=== PATIENT | male | born 1970 | race Caucasian/White ===

== ENCOUNTER → 2023-07-25 | Outpatient (CLI) | payer OTHER | END | disposition home or self-care (01) | LOC: RAH 07:56 | PROVIDERS: ATTEND Surgery | DX: R22.32 Localized swelling, mass and lump, left upper limb (principal) | CPT/HCPCS: 76882 ==

== ENCOUNTER 2025-02-03 15:17 | Emergency (ER) | payer OTHER ==
[~2025-02-03] VITALS: Ht 185.4 cm; Wt 97.5 kg
--- NOTE | 2025-02-03 16:27 | HMCIMG ---
Exam Type: CT LUMBAR SPINE W/O CONTRAST Clinical Information: BLE numbness Comparison: None Technique: Spiral axial images were performed from T12 to the sacral level. Both sagittal and coronal reconstructions were performed. CT Dose Index (CTDI): 59.14 mGy Dose Length Product (DLP): 1953.1 total Findings: There is normal alignment of the vertebral bodies. There are no fractures. No facet hypertrophy. The prevertebral soft tissues are normal. IMPRESSION: NORMAL LUMBAR SPINE CT.
[2025-02-03 16:40] LABS: BASOPHILS # (AUTO) 0.02 K/uL (0.00-0.20); BASOPHILS % (AUTO) 0.3 % (0.0-5.0); EOSINOPHILS % (AUTO) 5.1 % (0.0-8.0); HEMATOCRIT 44.9 % (42-54); IMMATURE GRANULOCYTE ABSOLUTE 0.03 K/uL (0-1); LYMPHOCYTES # (AUTO) 1.2 K/uL (1.0-4.8); LYMPHOCYTES % (AUTO) 20.3 % (21.0-51.0); MEAN CORPUSCULAR HEMOGLOBIN 28.9 pg (27.0-33.0); MEAN CORPUSCULAR HGB CONC 33.6 g/dL (32.0-36.0); MONOCYTES # (AUTO) 0.6 K/uL (0.1-1.0); MONOCYTES % (AUTO) 9.5 % (3.0-13.0); NEUTROPHILS # (AUTO) 3.8 K/uL (1.8-7.7); NEUTROPHILS % (AUTO) 64.3 % (40.0-77.0); PLATELET COUNT (AUTO) 238 K/uL (130-400); RED BLOOD CELL COUNT(AUTO) 5.22 MIL/uL (4.50-6.20); RED CELL DISTRIBUTION WIDTH 13.2 % (11.0-15.5); WHITE BLOOD COUNT (AUTO) 5.9 K/uL (4.8-10.8)
[2025-02-03 16:48] LABS: CREATININE 1.5 mg/dL (0.5-1.3); POTASSIUM 3.9 mmol/L (3.5-5.1)
[2025-02-03] MEDS: 0.9%NACL 1000ML 1,000 ML IV ONE (18:00)
[2025-02-03 20:32] LABS: CREATININE 1.4 mg/dL (0.5-1.3); POTASSIUM 4.6 mmol/L (3.5-5.1)
--- NOTE | 2025-02-03 20:52 | ERN ---
General Chief Complaint: Numbness Stated Complaint: BLE NUMBNESS Time Seen by MD: 15:29 Time Seen by Midlevel: 15:29 Source: patient History of Present Illness Allergies: Coded Allergies: No Known Allergies (Unverified Allergy, Unknown, 02/03/25) Past Medical History Past Medical History: Cancer, Heart Disease, Hypertension Medical History Other: BACK PAIN Past Surgical History: Other Surgical History Other: LT NEPRECTOMY, SPLEEN, LT TESTICLE, STIMULATOR Results Laboratory and Microbiology Lab and Micro Result Laboratory Tests Test 02/03/25 16:26 02/03/25 20:20 White Blood Count 5.9 K/uL (4.8-10.8) Red Blood Count 5.22 MIL/uL (4.50-6.20) Hemoglobin 15.1 g/dL (14.0-18.0) Hematocrit 44.9 % (42-54) Mean Corpuscular Volume 86.0 fL (79-99) Mean Corpuscular Hemoglobin 28.9 pg (27.0-33.0) Mean Corpuscular Hemoglobin Concent 33.6 g/dL (32.0-36.0) Red Cell Distribution Width 13.2 % (11.0-15.5) Platelet Count 238 K/uL (130-400) Mean Platelet Volume 8.5 fL (7.5-10.5) Immature Granulocyte % (Auto) 0.5 % (0-1) Neutrophils (%) (Auto) 64.3 % (40.0-77.0) Lymphocytes (%) (Auto) 20.3 % (21.0-51.0) L Monocytes (%) (Auto) 9.5 % (3.0-13.0) Eosinophils (%) (Auto) 5.1 % (0.0-8.0) Basophils (%) (Auto) 0.3 % (0.0-5.0) Neutrophils # (Auto) 3.8 K/uL (1.8-7.7) Lymphocytes # (Auto) 1.2 K/uL (1.0-4.8) Monocytes # (Auto) 0.6 K/uL (0.1-1.0) Eosinophils # (Auto) 0.30 K/uL (0.00-0.70) Basophils # (Auto) 0.02 K/uL (0.00-0.20) Absolute Immature Granulocyte (auto 0.03 K/uL (0-1) Nucleated Red Blood Cells 0.0 % (0.0-0.19) Sodium Level 137 mmol/L (136-145) 137 mmol/L (136-145) Potassium Level 3.9 mmol/L (3.5-5.1) 4.6 mmol/L (3.5-5.1) Chloride Level 100 mmol/L (101-111) L 99 mmol/L (101-111) L Carbon Dioxide Level 31 mmol/L (21-32) 34 mmol/L (21-32) H Blood Urea Nitrogen 21 mg/dL (7-18) H 19 mg/dL (7-18) H Creatinine 1.5 mg/dL (0.5-1.3) H 1.4 mg/dL (0.5-1.3) H Glomerular Filtration Rate Calc 55 mL/min (>90) 59 mL/min (>90) Random Glucose 104 mg/dL (70-105) 100 mg/dL (70-105) Total Calcium 8.5 mg/dL (8.5-10.1) 8.8 mg/dL (8.5-10.1) ED Course Orders Procedure Category Date Status Time Cbc With Differential LAB 02/03/25 Complete 15:29 Basic Metabolic Panel LAB 02/03/25 Complete 15:29 Ct Lumbar Spine W/O CT 02/03/25 Resulted Contrast 15:29 0.9%Nacl 1000ml (Ns PHA 02/03/25 Complete 1000ml) 18:00 Basic Metabolic Panel LAB 02/03/25 Complete 20:00 Current Medications Medications (Trade) Dose Ordered Sig/Loi Route PRN Reason Start Time Stop Time Status Last Admin Dose Admin Sodium Chloride 1,000 ml @ 0 mls/hr ONCE ONCE IV 02/03/25 18:00 02/03/25 18:01 DC 02/03/25 18:00 Vital Signs Date Time Temp Pulse Resp B/P (MAP) Pulse Ox O2 Delivery O2 Flow Rate FiO2 02/03/25 19:40 97.7 76 18 143/84 99 Room Air* 0 21 02/03/25 15:19 98.2 96 18 127/90 95 Room Air 0 DX & DISP Disposition: Discharge Departure Impression: Primary Impression: Lower extremity neuropathy Condition: Stable Additional Instructions: Discharge home. Rest. Follow up with primary care in 24 hours. Return to the ER for any acute changes or worsening symptoms. If any medications were prescribed take as directed. Okay to continue home medications unless otherwise discussed during your visit in the emergency room today. Patient was also advised to follow-up with primary care physician in 1 to 2 days for continued monitoring. Referrals: SELF,REFERRAL (PCP) I performed the substantive portion of the visit. I have reviewed and personally made and approve the management plan that is documented in the notes by myself or the [facility]. I acknowledge full responsibility for the patient's management plan. SETH BECKETT Feb 03, 2025 20:52
[2025-02-03 21:11] VITALS: BP 165/86; PULSE 81; RESP 17; TEMP 97.6; O2SAT 96
== END 2025-02-03 21:18 | disposition home or self-care (01) ==
LOC: EDH 15:17
DX: G62.9 Polyneuropathy, unspecified (principal); I10 Essential (primary) hypertension; Z98.890 Other specified postprocedural states
CPT/HCPCS: 99284; 96360; 72131; 80048 ×2; 85025; 36415; J7030

== ENCOUNTER 2025-08-06 16:26 | Emergency (ER) | payer BC, OTHER ==
[~2025-08-06] VITALS: Ht 185.4 cm; Wt 95.7 kg
--- NOTE | 2025-08-06 16:34 | ERN ---
ED Note History of Present Illness Stated Complaint: HEAD INJURY Chief Complaint: Head Injury Time Seen by MD: 16:30 Dictation: PATIENT IS A 55-YEAR-OLD MALE HERE WITH HIS GIRLFRIEND WITH COMPLAINTS OF HAVING AN UNWITNESSED FALL BACKWARDS LAST NIGHT AFTER HE LOST HIS BALANCE. HE HIT THE STRUCK THE BACK OF HIS HEAD ON THE SINK. NO LOC NO NAUSEA NO VOMITING. HOWEVER ACCORDING TO THE GIRLFRIEND, THE PATIENT WENT OUT AND GOT IN IN HIS CAR FOR QUITE A LONG TIME WITH A RUNNING AND THE NEIGHBORS CALLED TO HAVE A WELL FOR CHECK DONE. [facility] [employer] SHOWED UP AND CALLED AND EMS HOWEVER PATIENT REFUSED IT. HE WAS TAKEN TO A URGENT CARE TODAY WHO DID NOTHING FOR HIS SYMPTOMS OTHER THAN REFER HIM TO THE EMERGENCY ROOM. PATIENT CURRENTLY ALERT AND ORIENTED X4 SPEECH IS CLEAR. Allergies: Coded Allergies: No Known Allergies (Unverified Allergy, Unknown, 02/03/25) Past Medical History Past Medical History: Cancer, Heart Disease, Hypertension Additional Past Medical Hx: BACK PAIN Surgical History: Other Surgical History Other: LT NEPRECTOMY, SPLEEN, LT TESTICLE, STIMULATOR RN Note Reviewed/Agreed w/[facility]: Yes Review of System Dictation CONSTITUTIONAL: NEGATIVE EXCEPT FOR HPI HEAD/FACE: NEGATIVE EXCEPT FOR HPI EENT: NEGATIVE EXCEPT FOR HPI RESPIRATORY: NEGATIVE EXCEPT FOR HPI GASTROINTESTINAL/ABDOMINAL: NEGATIVE EXCEPT FOR HPI GENITOURINARY: NEGATIVE EXCEPT FOR HPI MUSCULOSKELETAL: NEGATIVE EXCEPT FOR HPI INTEGUMENTARY: NEGATIVE EXCEPT FOR HPI NEUROLOGICAL/PSYCH: NEGATIVE EXCEPT FOR HPI OCCIPITAL HEADACHE WITH MILD AMS BY HISTORY HEMATOLOGIC/LYMPHATIC: NEGATIVE EXCEPT FOR HPI ALL SYSTEMS NEGATIVE, EXCEPT NOTED ABOVE. 13 POINT REVIEW OF SYSTEMS ASSESSED AND ALL NEGATIVE EXCEPT FOR ABOVE. Initial Vital Sign VS Vital Signs Date Time Temp Pulse Resp B/P (MAP) Pulse Ox O2 Delivery O2 Flow Rate FiO2 08/06/25 16:28 98.1 92 20 138/84 98 Room Air 08/06/25 16:48 0 21 Physical Exam Dictation VITAL SIGNS REVIEWED GENERAL APPEARANCE: ALERT, ORIENTED X 3, NO ACUTE DISTRESS, WELL DEVELOPED, NOURISHED. HEAD AND FACE MILD BILATERAL OCCIPITAL TENDERNESS. NO GUZMAN OR RACCOON SIGN EYES: PERRL, PINK CONJUNCTIVAS, EYELID NO TRAUMA, ANTERIOR CHAMBER WITH ARCUS SENILIS. EARS: PINNAS INTACT AND NO SIGNS OF TRAUMA OR ERYTHEMA EAR CANALS CLEAR AND NO DISCHARGE TM NO ERYTHEMA NO HEMOTYMPANUM NOSE: NO DISCHARGE, NO BLEEDING. OROPHARYNX: MOUTH NORMAL, TONGUE PINK, PHARYNX CLEAR,NO ERYTHEMA, TONSILS NO EXUDATES, NO ABSCESSES NOTED, MUCOUS MEMBRANE MOIST NECK: SUPPLE, NON-TENDER, NO THYROMEGALY, NO MASSES, NO JVD, NO BRUITS BREAST:DEFERRED CHEST:NO TENDERNESS, NO CREPITUS, NO PARADOXICAL MOVEMENT, NO RETRACTIONS LUNGS:CLEAR, WELL-VENTILATED, SYMMETRIC, NO RALES, NO WHEEZING, NO RHONCHI, NO STRIDOR, GOOD BREATH SOUNDS BILATERALLY HEART: REGULAR RATE, REGULAR RHYTHM, NO MURMUR, NO GALLOPS VASCULAR: NO PERIPHERAL EDEMA, ABDOMEN: SOFT, POSITIVE BOWEL SOUNDS, NONDISTENDED, NO GUARDING, NONTENDER, NO REBOUND, NO MASSES NO HEPATOMEGALY, NO SPLENOMEGALY, NO RIBERA'S SIGN, NO HERNIAS. RECTAL: DEFERRED GENITAL: DEFERRED NEUROLOGICAL: NORMAL SPEECH, MOTOR FUNCTION INTACT, SENSORY FUNCTION INTACT NIH IS 0 MUSCULOSKELETAL: NECK NONTENDER, FULL RANGE OF MOTION, BACK NONTENDER, FULL RANGE OF MOTION, EXTREMITIES: NONTENDER, FULL RANGE OF MOTION SKIN: COLOR PINK, DRY, NO TURGOR, NO RASH, NO LACERATIONS, NO ABRASIONS, NO CONTUSIONS. LYMPHATIC: DEFERRED Results (Laboratory/Radiology) Laboratory/Radiology OCCIPITAL HEADACHE WITH MILD ALTERED MENTAL STATUS AFTER FALL YESTERDAY TECHNIQUE: Axial computed tomography images of the head/brain without intravenous contrast. COMPARISON: None provided. FINDINGS: BRAIN: No evidence of acute hemorrhage. No mass lesion. No CT evidence for acute territorial infarct. No midline shift or extra-axial collections. VENTRICLES: No hydrocephalus. ORBITS: The orbits are unremarkable. SINUSES AND MASTOIDS: The paranasal sinuses and mastoid air cells are clear. BONES: No fracture. SOFT TISSUES: Unremarkable. IMPRESSION: No acute intracranial abnormality. /[facility] Labs Reviewed?: Yes ED Course ED Course Orders Procedure Category Date Status Time Acetaminophen 500mg PHA 08/06/25 Complete Tab (Tylenol 500mg T 17:00 Ct Head/Brain W/O CT 08/06/25 Resulted Contrast 16:32 Current Medications Medications (Trade) Dose Ordered Sig/Loi Route PRN Reason Start Time Stop Time Status Last Admin Dose Admin Acetaminophen (TYLenol 500MG TAB) 1,000 mg ONCE ONCE PO 08/06/25 17:00 08/06/25 17:01 DC 08/06/25 16:58 Vital Signs Date Time Temp Pulse Resp B/P (MAP) Pulse Ox O2 Delivery O2 Flow Rate FiO2 08/06/25 16:48 98.1 92 20 138/84 98 Room Air* 0 21 08/06/25 16:28 98.1 92 20 138/84 98 Room Air 1710/NIH is 0 patient is alert and oriented x4 speech is clear. Discharged home with closed head injury in posttraumatic headache. He has primary care doctor Tylenol only for pain Medical Decision Making MDM Medical discharge making based on CT of the head due to fall and altered mental status CT negative Patient discharged home neurologically intact per girlfriend Told Tylenol only for pain and see his primary care doctor DX & DISP Disposition: Discharge Departure Impression: Primary Impression: Contusion of scalp, initial encounter Additional Impressions: Fall, Posttraumatic headache Condition: Stable Additional Instructions: Follow-up with primary care provider in 1 to 2 days. Take medications as directed here in the emergency room. Okay to continue home medications unless otherwise discussed during your visit in the emergency room today. Return to your nearest emergency room if symptoms worsen or if there is no improvement. Call 911 if you need immediate assistance. Take Tylenol or Motrin [id number] as needed and if no contraindications are present. Increase oral hydration. A wound culture or urine culture was ordered here in the emergency room department please follow-up with primary care provider and advise them to get repeat ports from our facility. If you had any Nam wrap/splints that were applied here, please do not remove them until you see your primary care or specialty. Take Tylenol as needed for pain. See your primary care doctor for follow up. Referrals: SELF,REFERRAL (PCP) Time of Disposition: 17:13 I have reviewed the case, and I agree with, Diagnosis and Plan ALISIA MCFADDEN Aug 06, 2025 16:34
[2025-08-06 16:48] VITALS: BP 138/84; PULSE 92; RESP 20; TEMP 98.1; O2SAT 98
--- NOTE | 2025-08-06 17:02 | HMCIMG ---
EXAM: CT Head Without IV contrast. CLINICAL HISTORY: OCCIPITAL HEADACHE WITH MILD ALTERED MENTAL STATUS AFTER FALL YESTERDAY TECHNIQUE: Axial computed tomography images of the head/brain without intravenous contrast. COMPARISON: None provided. FINDINGS: BRAIN: No evidence of acute hemorrhage. No mass lesion. No CT evidence for acute territorial infarct. No midline shift or extra-axial collections. VENTRICLES: No hydrocephalus. ORBITS: The orbits are unremarkable. SINUSES AND MASTOIDS: The paranasal sinuses and mastoid air cells are clear. BONES: No fracture. SOFT TISSUES: Unremarkable. IMPRESSION: No acute intracranial abnormality. /[place]
== END 2025-08-06 17:18 | disposition home or self-care (01) ==
LOC: EDH 16:26
DX: S00.03XA Contusion of scalp, initial encounter (principal); G44.309 Post-traumatic headache, unspecified, not intractable; I11.9 Hypertensive heart disease without heart failure; W22.09XA Striking against other stationary object, initial encounter; Y93.89 Activity, other specified; Y92.89 Other specified places as the place of occurrence of the external cause; Y99.8 Other external cause status
CPT/HCPCS: 70450; 99284